=== PATIENT | male | born 1955 | race Two or more races ===

== ENCOUNTER 2025-03-21 12:38 | Inpatient (IN) | payer OTHER ==
[~2025-03-21] VITALS: Ht 165.1 cm; Wt 72.6 kg
[2025-03-21] MEDS ORDERED: METFORMIN HCL500 M4 PO (13:11)
[2025-03-21] MEDS ORDERED: TOPROL XL50 M1 PO (13:12)
[2025-03-21] MEDS ORDERED: ROSUVASTATIN CA20 MG PO (13:12)
[2025-03-21] MEDS ORDERED: [UNRECOGNIZED DRUG - OTHER] PF (13:13)
[2025-03-21] MEDS ORDERED: PRAMIPEXOLE E2.25 MG PO (13:13)
[2025-03-21] MEDS ORDERED: LOSARTAN-HCTZ1 EACH PO (13:14)
[2025-03-21 17:58] LABS: INR 1.26
[2025-03-26] MEDS ORDERED: CEFTRIAXONE SODIUM 2,000 MG VIAL ONE (10:57)
[2025-03-26] MEDS ORDERED: METRONIDAZOLE/SODIUM CHLORIDE 500 MG/100 ML PIGGYBACK IV ONE (10:57)
[2025-03-26] MEDS ORDERED: LIDOCAINE HCL 1%/EPINEPHRINE 20ML VIAL IJ ONE (14:23)
[2025-03-26] MEDS ORDERED: BUPIVACAINE HCL/MPF 0.5% 30ML VIAL ONE (14:23)
[2025-03-26] MEDS ORDERED: hydrALAZINE HCL 20 MG VIAL ONE (15:31)
[2025-03-26] MEDS ORDERED: ONDANSETRON HCL 2 MG/ML VIAL IV PRN (17:15)
[2025-03-26] MEDS ORDERED: OxyCODONE HCL 5 MG TABLET (ROXICODONE) PO PRN (17:15)
[2025-03-26] MEDS ORDERED: DEXTROSE 50 % IN WATER 0.5 G/ML DISP.SYRIN IV PRN ×2 (17:15→18:00)
[2025-03-26] MEDS ORDERED: RINGERS SOLUTION,LACTATED 1,000 ML IV SCH (17:15)
[2025-03-26] MEDS ORDERED: MORPHINE SULFATE 4 MG/ML CARTRIDGE IV PRN (17:15)
[2025-03-26] MEDS ORDERED: LABETALOL HCL 20MG/4ML SYRINGE IV STA (17:55)
[2025-03-26] MEDS ORDERED: ENALAPRILAT DIHYDRATE 1.25 MG/ML VIAL IV PRN (18:00)
[2025-03-26] MEDS ORDERED: INSULIN LISPRO 1,000 UNIT/10 ML UNITS SUBCUTANEO PRN (18:00)
[2025-03-26] MEDS ORDERED: ACETAMINOPHEN 500 MG GEL..CAP PO SCH (20:00)
[2025-03-26] MEDS ORDERED: LABETALOL HCL 20MG/4ML SYRINGE IV ONE (20:30)
[2025-03-26] MEDS ORDERED: CARBIDOPA/LEVODOPA 25/250 TABLET PO SCH (21:00)
[2025-03-26] MEDS ORDERED: FAMOTIDINE/PF 20 MG/2 ML VIAL IV PUSH SCH (21:00)
[2025-03-26 22:06] LABS: BASO % 0.4 % (0.1-1.2); EOS # 0.02 (0.04-0.54); EOS % 0.2 % (0.7-7.0); LYMPH # 0.49 (1.18-3.74); LYMPH % 4.5 % (19.3-53.1); MEAN PLATELET VOLUME 10.80 fl (9.4-12.4); MONO # 0.52 (0.24-0.82); MONO % 4.7 % (4.7-12.5); NEUT # 9.86 (1.56-6.13); NEUT % 89.9 % (34.0-71.1); RED CELL DISTRIBUTION WIDTH 14.0 % (11.6-14.4)
[2025-03-26 22:22] LABS: BUN CREA RATIO 12.0 (7.0-25.0); CREATININE SERUM 1.23 mg/dL (0.70-1.30); GFR 58.34; OSMOLALITY SERUM 283.0 MOSM/KG (275-295)
[2025-03-26 22:23] LABS: GLUCOSE FASTING 216.0 mg/dL (65-100)
[2025-03-27 00:23] VITALS: BP 208/104; O2SAT 98
[2025-03-27 00:51] VITALS: BP 195/96; O2SAT 100
[2025-03-27] MEDS ORDERED: GABAPENTIN 300 MG CAPSULE PO SCH (01:00)
[2025-03-27] MEDS ORDERED: LABETALOL HCL 100 MG/20 ML ML IV ONE (01:00)
[2025-03-27 02:21] VITALS: BP 157/81; O2SAT 100
[2025-03-27 07:15] VITALS: BP 167/77; O2SAT 96
[2025-03-27] MEDS ORDERED: NIFEDIPINE 30 MG TAB.SA.OSM PO SCH (09:00)
[2025-03-27] MEDS ORDERED: METOPROLOL SUCCINATE 50 MG TAB.SR.24H PO SCH (09:00)
[2025-03-27] MEDS ORDERED: LOSARTAN/HYDROCHLOROTHIAZIDE 1 TAB TABLET PO SCH (09:00)
[2025-03-27 10:53] VITALS: BP 161/76
[2025-03-27 12:16] LABS: BASO % 0.4 % (0.1-1.2); EOS # 0.07 (0.04-0.54); EOS % 0.6 % (0.7-7.0); LYMPH # 1.07 (1.18-3.74); LYMPH % 9.4 % (19.3-53.1); MEAN PLATELET VOLUME 11.20 fl (9.4-12.4); MONO # 0.74 (0.24-0.82); MONO % 6.5 % (4.7-12.5); NEUT # 9.37 (1.56-6.13); NEUT % 82.7 % (34.0-71.1); RED CELL DISTRIBUTION WIDTH 14.1 % (11.6-14.4)
[2025-03-27] MEDS ORDERED: SODIUM CHLORIDE 0.45 % 1,000 ML IV SCH (12:30)
[2025-03-27 13:49] LABS: BUN CREA RATIO 13.0 (7.0-25.0); CREATININE SERUM 1.32 mg/dL (0.70-1.30); GFR 53.78; OSMOLALITY SERUM 279.0 MOSM/KG (275-295)
[2025-03-27 13:52] LABS: GLUCOSE FASTING 206.0 mg/dL (65-100)
[2025-03-27 16:51] VITALS: BP 124/65; O2SAT 95
[2025-03-27] MEDS ORDERED: ENOXAPARIN SODIUM 40 MG/0.4 ML SYRINGE SUBCUTANEO SCH (17:00)
[2025-03-27] MEDS ORDERED: ROSUVASTATIN CALCIUM 20 MG TABLET PO SCH (17:00)
[2025-03-27] MEDS ORDERED: MAGNESIUM SULFATE IN WATER 50 ML IV ONE (18:15)
[2025-03-28 00:47] VITALS: BP 120/69; O2SAT 97
[2025-03-28 07:12] LABS: BASO % 0.5 % (0.1-1.2); EOS # 0.33 (0.04-0.54); EOS % 2.9 % (0.7-7.0); LYMPH # 1.64 (1.18-3.74); LYMPH % 14.2 % (19.3-53.1); MEAN PLATELET VOLUME 10.60 fl (9.4-12.4); MONO # 0.81 (0.24-0.82); MONO % 7.0 % (4.7-12.5); NEUT # 8.66 (1.56-6.13); NEUT % 75.1 % (34.0-71.1); RED CELL DISTRIBUTION WIDTH 14.5 % (11.6-14.4)
[2025-03-28 07:57] LABS: BUN CREA RATIO 14.0 (7.0-25.0); CREATININE SERUM 1.4 mg/dL (0.70-1.30); GFR 50.25; GLUCOSE FASTING 152.0 mg/dL (65-100); OSMOLALITY SERUM 275.0 MOSM/KG (275-295)
[2025-03-28 08:00] VITALS: BP 114/73; O2SAT 97
[2025-03-28] MEDS ORDERED: ENOXAPARIN SODIUM 40 MG/0.4 ML SYRINGE SUBCUTANEO SCH (09:00)
[2025-03-28] MEDS ORDERED: IRON FUM,PS/FOLIC ACID/VITC/B3 1 CAP CAPSULE PO SCH (09:00)
[2025-03-28] MEDS ORDERED: Cyanocobalamin/Mecobalamin 1 TAB.SL SL SCH (09:00)
[2025-03-28] MEDS ORDERED: CARBIDOPA/LEVODOPA 25/250 TABLET PO SCH ×2 (09:00→16:00)
[2025-03-28] MEDS ORDERED: hydrALAZINE HCL 20 MG VIAL IV PRN (09:15)
[2025-03-28 16:30] VITALS: BP 107/64
[2025-03-28 19:03] VITALS: O2SAT 94
[2025-03-28 23:44] VITALS: O2SAT 93
[2025-03-29 01:10] VITALS: BP 117/66; O2SAT 94
[2025-03-29 03:51] VITALS: O2SAT 99
[2025-03-29 06:14] LABS: BASO % 0.3 % (0.1-1.2); EOS # 0.45 (0.04-0.54); EOS % 5.2 % (0.7-7.0); LYMPH # 1.58 (1.18-3.74); LYMPH % 18.4 % (19.3-53.1); MEAN PLATELET VOLUME 10.70 fl (9.4-12.4); MONO # 0.56 (0.24-0.82); MONO % 6.5 % (4.7-12.5); NEUT # 5.95 (1.56-6.13); NEUT % 69.3 % (34.0-71.1); RED CELL DISTRIBUTION WIDTH 14.4 % (11.6-14.4)
[2025-03-29 07:01] LABS: BUN CREA RATIO 18.0 (7.0-25.0); CREATININE SERUM 1.37 mg/dL (0.70-1.30); GFR 51.52; GLUCOSE FASTING 146.0 mg/dL (65-100); OSMOLALITY SERUM 285.0 MOSM/KG (275-295)
[2025-03-29] MEDS ORDERED: GABAPENTIN300 MG PO (08:41)
[2025-03-29] MEDS ORDERED: INTESTINEX680 M1 PO (08:41)
[2025-03-29] MEDS ORDERED: NEURONTIN300 MG PO (08:42)
[2025-03-29] MEDS ORDERED: ACETAMINOPHEN500 M2 PO (08:44)
[2025-03-29] MEDS ORDERED: MIRALAX17 GM PO (08:45)
[2025-03-29] MEDS ORDERED: LOSARTAN POTASSIUM 100 MG TABLET PO SCH (09:00)
[2025-03-29 09:38] VITALS: O2SAT 94
== END 2025-03-29 11:49 | disposition home or self-care (01) | DRG 330 ==
LOC: SURG 03-26 10:00 → O/R 03-26 10:00 → SURH 03-26 10:15 → SURG 03-26 18:29
PROVIDERS: Internal Medicine Geriatric Medicine; ADMIT Surgery; ATTEND Surgery
PROC: 0DBP4ZZ Excision of Rectum, Percutaneous Endoscopic Approach (ICD-10-PCS; 2025-03-26)
PROC: 07BC4ZZ Excision of Pelvis Lymphatic, Percutaneous Endoscopic Approach (ICD-10-PCS; 2025-03-26)
PROC: 0DTN4ZZ Resection of Sigmoid Colon, Percutaneous Endoscopic Approach (ICD-10-PCS; principal; 2025-03-26 10:15)
PROC: B24BYZZ Ultrasonography of Heart with Aorta using Other Contrast (ICD-10-PCS; 2025-03-27)
PROC: 4A12X4Z Monitoring of Cardiac Electrical Activity, External Approach (ICD-10-PCS; 2025-03-28)
DX: C18.7 Malignant neoplasm of sigmoid colon (principal); K62.5 Hemorrhage of anus and rectum; R59.0 Localized enlarged lymph nodes; I10 Essential (primary) hypertension; E11.9 Type 2 diabetes mellitus without complications; Z79.4 Long term (current) use of insulin